=== PATIENT | female | born 1985 | race Caucasian/White ===

== ENCOUNTER 2023-11-02 20:36 | Emergency (ER) | payer OTHER, SELFPAY ==
[2023-11-02 20:41] VITALS: BP 103/56; PULSE 69; TEMP 36.6; O2SAT 99; BMI 22.8
--- NOTE | 2023-11-02 21:05 | ED.UPPEXIN1 ---
HPI HPI - Extremity Injury (Upper) General Chief Complaint: Extremity Injury, Upper Stated Complaint: Upper Injury Time Seen by Provider: 11/02/23 21:02 Source: patient Mode of arrival: walk-in Limitations: no limitations History of Present Illness HPI narrative: describes jamming her thumb while it was in extension. Was at work and a box struck her thumb last night. Now has pain and swelling of the right thumb and pain radiates up her wrist. No numbness or weakness Related Data Home Medications ?Medication ?Instructions ?Recorded ?Confirmed No Known Home Medications 11/02/23 11/02/23 Allergies Allergy/AdvReac Type Severity Reaction Status Date / Time Penicillins AdvReac Mild Verified 11/02/23 20:41 Opioid HPI Opioid Management Most Recent Pain and Opioid Data: No Data to Display Review of Systems ROS Status of ROS 10 or more systems reviewed and unremarkable except as noted in history and below Exam Constitutional Vital Signs, click to edit/add: Last Vital Signs Temp 97.8 F 11/02/23 20:41 Pulse 69 11/02/23 20:41 Resp 18 11/02/23 20:41 BP 103/56 11/02/23 20:41 Pulse Ox 99 11/02/23 20:41 O2 Del Method Room Air 11/02/23 20:41 Common normals: no apparent distress, average body habitus, oriented x3, no limitations, healthy appearing, alert and well nourished [facility] Common normals: normocephalic and head/scalp atraumatic Respiratory Common normals: normal respiratory effort, no retractions, no use of accessory muscles and clear to auscultation bilaterally Cardio Common normals: regular rate, regular rhythm, S1 normal heart sound and S2 normal heart sound Extremity Other: mild swelling right 1st MCP joint. limited ROM. no discoloration Neuro Common normals: oriented x3, moves all extremities and no focal motor deficits Psych Appearance: grossly normal Course Vital Signs Vital signs: Vital Signs Temperature 97.8 F 11/02/23 20:41 Pulse Rate 69 11/02/23 20:41 Respiratory Rate 18 11/02/23 20:41 Blood Pressure 103/56 11/02/23 20:41 Pulse Oximetry 99 11/02/23 20:41 Oxygen Delivery Method Room Air 11/02/23 20:41 Temperature 97.8 F 11/02/23 20:41 Pulse Rate 69 11/02/23 20:41 Respiratory Rate 18 11/02/23 20:41 Blood Pressure 103/56 11/02/23 20:41 Pulse Oximetry 99 11/02/23 20:41 Oxygen Delivery Method Room Air 11/02/23 20:41 MDM - Extremity Injury (Upper) MDM Narrative Medical decision making narrative: patient presents after hyper extension injury to the right thumb. xray neg. does have mild swelling at 1st MCP joint. splint placed and patient returned to work with restrictions Imaging Data Chest x-ray: Radiologist's impression: ITS Impressions Hand X-Ray 11/02/23 21:07 IMPRESSION: No fracture Electronically authenticated by: ANAHI NOLASCO Date: 11/02/2023 21:35 Discharge Plan Discharge Stand Alone Forms: Portal Instructions Chief Complaint: Extremity Injury, Upper Clinical Impression: Finger sprain Patient Disposition: Home, Self-Care Prescriptions / Home Meds: No Action No Known Home Medications Print Language: Macedonian Instructions: Rob Briones (ED) Additional Instructions: follow up with Industrial [facility] sunday Referrals: Physician,Non-Staff, [Primary Care Provider] - 1 week Discharge Date/Time: 11/02/23 22:30
--- NOTE | 2023-11-02 21:07 | XR_ITS ---
The [place] [address] Patient Name: AURELIO MARSHALL MRN: [id number] date: 1985 Sex: F Assigned Patient Location: ER Current Patient Location: ER Accession/Order Number: [id number] Exam Date: 11/02/2023 21:10 Report Date: 11/02/2023 21:35 At the request of: CHANCE CERVANTES Procedure: XR hand RT min 3V EXAM: XR hand RT min 3V TECHNIQUE: AP, lateral and oblique views right hand HISTORY: thumb injury COMPARISON: None. FINDINGS: No acute fracture or dislocation. Soft tissues are unremarkable. No significant arthritic changes. XR/XR hand RT min 3V IMPRESSION: No fracture Electronically authenticated by: ANAHI NOLASCO Date: 11/02/2023 21:35
== END 2023-11-02 22:30 | disposition home or self-care (01) ==
PROVIDERS: Emergency Provider Internal Medicine
DX: S63.601A Unspecified sprain of right thumb, initial encounter (principal); W22.8XXA Striking against or struck by other objects, initial encounter
CPT/HCPCS: 29130; 73130; 99283

== ENCOUNTER 2023-11-13 17:46 | Emergency (ER) | payer OTHER, SELFPAY ==
[2023-11-13 17:53] VITALS: BP 126/68; PULSE 70; TEMP 36.7; O2SAT 99; BMI 23.1
--- NOTE | 2023-11-13 18:02 | PC.NURSE ---
pt arrives with splint to right hand / thumb. splint removed for assessment and no redness, swelling or bruising observed and skin intact
--- NOTE | 2023-11-13 18:10 | ED.UPPEXIN1 ---
HPI HPI - Extremity Injury (Upper) General Chief Complaint: Extremity Injury, Upper Stated Complaint: upper Injury Time Seen by Provider: 11/13/23 18:05 Source: patient Mode of arrival: walk-in History of Present Illness HPI narrative: 38 year old female presents to the ED for pain to her right thumb that radiates to her wrist and across the palm of her hand. Onset was after an injury on 11/02/23. States she was trying to keep a box from landing incorrectly on a belt; the box landed on her thumb. She was evaluated here after the injury. She has been wearing her wrist brace. States she has been unable to work due to the pain. She has not followed up with occupational health. She had Motrin at 0900 this morning. Denies chance of . Related Data Home Medications ?Medication ?Instructions ?Recorded ?Confirmed No Known Home Medications 11/02/23 11/02/23 Allergies Allergy/AdvReac Type Severity Reaction Status Date / Time Penicillins AdvReac Mild Verified 11/02/23 20:41 Opioid HPI Opioid Management Most Recent Pain and Opioid Data: No Data to Display Review of Systems ROS Constitutional Denies: fever or chills Ears, nose, mouth, and throat Denies: neck pain Cardiovascular Denies: chest pain Respiratory Denies: shortness of breath Musculoskeletal Reports: extremity pain Integumentary/Breast Denies: rash or redness Neurological Denies: weakness in extremities Exam Constitutional Vital Signs, click to edit/add: Last Vital Signs Temp 98.0 F 11/13/23 17:53 Pulse 70 11/13/23 17:53 Resp 16 11/13/23 17:53 BP 126/68 11/13/23 17:53 Pulse Ox 99 11/13/23 17:53 O2 Del Method Room Air 11/13/23 17:53 Common normals: no apparent distress and oriented x3 Eye Common normals: conjunctivae normal and no scleral icterus Neck & C-Spine Common normals: supple Respiratory Common normals: normal respiratory effort and no use of accessory muscles Effort & inspection: able to speak in complete sentences Cardio Common normals: regular rate Extremity Other: Tenderness to base of right thumb. Distal sensation intact. Decreased ROM to right thumb due to pain. Tenderness extends to right lateral wrist. No erythema, swelling or deformity noted. Neuro Common normals: oriented x3 Sensorium/orientation: awake and alert Course Vital Signs Vital signs: Vital Signs Temperature 98.0 F 11/13/23 17:53 Pulse Rate 70 11/13/23 17:53 Respiratory Rate 16 11/13/23 17:53 Blood Pressure 126/68 11/13/23 17:53 Pulse Oximetry 99 11/13/23 17:53 Oxygen Delivery Method Room Air 11/13/23 17:53 Temperature 98.0 F 11/13/23 17:53 Pulse Rate 70 11/13/23 17:53 Respiratory Rate 16 11/13/23 17:53 Blood Pressure 126/68 11/13/23 17:53 Pulse Oximetry 99 11/13/23 17:53 Oxygen Delivery Method Room Air 11/13/23 17:53 MDM - Extremity Injury (Upper) MDM Narrative Medical decision making narrative: She requested a work excuse. She was medicated with Toradol here. She has a Velcro thumb spica/wrist splint. She was encouraged to follow up with occupational health for a recheck, further evaluation and treatment. She declined repeat imaging today. Differential Diagnosis Differential diagnosis: Likely sprain and strain of wrist and finger sprain Medical Records Attestation: I reviewed the patient's medical records. Discharge Plan Discharge Stand Alone Forms: Portal Instructions Chief Complaint: Extremity Injury, Upper Clinical Impression: Sprain of right thumb Patient Disposition: Home, Self-Care Time of Disposition Decision: 18:12 Condition: Good Mode of Transportation: Private Vehicle Prescriptions / Home Meds: No Action No Known Home Medications Print Language: Polish Instructions: Sprain (ED), Finger Sprain (ED) Additional Instructions: Follow up with occupational health for a recheck, further evaluation and treatment. Referrals: Physician,Non-Staff, MD [Primary Care Provider] - 1 week Discharge Date/Time: 11/13/23 18:28
[2023-11-13] MEDS: KETOROLAC TROMETHAMINE 60 MG/2 ML VIAL IM (18:17)
== END 2023-11-13 18:28 | disposition home or self-care (01) ==
PROVIDERS: Emergency Provider Emergency Medicine
DX: S63.601A Unspecified sprain of right thumb, initial encounter (principal); W20.8XXA Other cause of strike by thrown, projected or falling object, initial encounter
CPT/HCPCS: 96372; 99284

== ENCOUNTER 2023-11-26 15:31 | Outpatient (OUT) | payer OTHER, SELFPAY ==
--- NOTE | 2023-11-26 15:36 | XR_ITS ---
The [address] [address] Patient Name: AURELIO MARSHALL MRN: [id number] date: 1985 Sex: F Assigned Patient Location: [facility] Current Patient Location: [facility] Accession/Order Number: [id number] Exam Date: 11/26/2023 15:39 Report Date: 11/26/2023 16:20 At the request of: HARI MARIE Procedure: XR finger RT min 2V PROCEDURE: XR finger RT min 2V COMPARISON: None. HISTORY: Thumb sprain Right FINDINGS: BONES:No fracture, acute abnormality, or significant arthropathy. SOFT TISSUES:Negative. No visible soft tissue swelling. EFFUSION:None visible. OTHER: Negative. XR/XR finger RT min 2V IMPRESSION: No acute radiographic abnormality Electronically authenticated by: JAYDEN ESCOBAR Date: 11/26/2023 16:20
== END 2023-11-26 15:32 | disposition home or self-care (01) ==
LOC: RAD 15:32
PROVIDERS: Visit Provider Nurse Practitioner Family
DX: S63.601A Unspecified sprain of right thumb, initial encounter (principal)
CPT/HCPCS: 73140

== ENCOUNTER 2024-04-10 09:19 | Emergency (ER) | payer OTHER, SELFPAY ==
[2024-04-10 09:23] VITALS: BP 136/82; PULSE 77; TEMP 36.9; O2SAT 100; BMI 23.2
--- NOTE | 2024-04-10 09:34 | XR_ITS ---
The [address] [address] Patient Name: AURELIO MARSHALL MRN: [id number] date: 1985 Sex: F Assigned Patient Location: ER Current Patient Location: ER Accession/Order Number: [id number] Exam Date: 04/10/2024 09:55 Report Date: 04/10/2024 10:23 At the request of: KARRIE VILLA Procedure: XR pelvis 1-2V PROCEDURE: XR pelvis 1-2V HISTORY: left groin pain, started while lifting COMPARISON: None. FINDINGS: BONES:No fracture, acute abnormality, or significant arthropathy. SOFT TISSUES:No visible soft tissue swelling. EFFUSION:None visible. OTHER: Negative. XR/XR pelvis 1-2V IMPRESSION: 1. No acute or suspicious findings to account for patient's symptoms. Electronically authenticated by: NIKOLAI SHELLEY Date: 04/10/2024 10:23
--- NOTE | 2024-04-10 09:35 | ED.GENADUL1 ---
HPI HPI - General Adult General Chief complaint: Back Pain/Injury Stated complaint: PAIN IN [facility] Time Seen by Provider: 04/10/24 09:23 History of Present Illness HPI narrative: 38-year-old female presents for left groin pain. It started just after midnight, about 9 hours ago, when she was lifting heavy item at work. She felt a pulling sensation in the area. She did not fall. The pain does not radiate. No pain on the right side. Related Data Home Medications ?Medication ?Instructions ?Recorded ?Confirmed No Known Home Medications 11/02/23 11/02/23 Allergies Allergy/AdvReac Type Severity Reaction Status Date / Time Penicillins AdvReac Mild SHORTNESS Verified 04/10/24 09:23 of breath Opioid HPI Opioid Management Most Recent Opioid Data: No Data to Display Review of Systems ROS Narrative A ten point review of systems is negative except as noted above. PFSH PFSH Social History Little interest or pleasure in doing things: not at all Feeling down, depressed, or hopeless: not at all Exam Narrative Exam Narrative: Nurses note and vital signs reviewed and patient is not hypoxic. General: The patient appears well and in no apparent distress. Patient is resting comfortably on cart. Skin: Warm, dry, no pallor noted. There is no rash noted. Head: Normocephalic, atraumatic Eye: Normal conjunctiva, no drainage Ears, Nose, Mouth, and Throat: oral mucosa is moist. Nares patent. Cardiovascular: Regular Rate and Rhythm Respiratory: Patient is in no distress, no accessory muscle use, lungs are clear to auscultation, no wheezing, rales or rhonchi Back: non-tender GI: Soft and nontender in the abdominal area. She has tenderness in the left groin region. There is no erythema. There is a small palpable lymph node, nonfluctuant and no erythema. Hip has full range of motion. Musculoskeletal: The patient has no evidence of calf tenderness, no pitting edema, symmetrical pulses noted bilaterally. There are no wounds or areas of erythema on the left leg. Neurological: A&O, normal speech Psychiatric: Cooperative Constitutional Vital Signs, click to edit/add: Last Vital Signs Temp 98.5 F 04/10/24 09:23 Pulse 77 04/10/24 09:23 Resp 16 04/10/24 09:23 BP 136/82 04/10/24 09:23 Pulse Ox 100 04/10/24 09:23 O2 Del Method Room Air 04/10/24 09:23 Course Vital Signs Vital signs: Vital Signs Temperature 98.5 F 04/10/24 09:23 Pulse Rate 77 04/10/24 09:23 Respiratory Rate 16 04/10/24 09:23 Blood Pressure 136/82 04/10/24 09:23 Pulse Oximetry 100 04/10/24 09:23 Oxygen Delivery Method Room Air 04/10/24 09:23 Temperature 98.5 F 04/10/24 09:23 Pulse Rate 77 04/10/24 09:23 Respiratory Rate 16 04/10/24 09:23 Blood Pressure 136/82 04/10/24 09:23 Pulse Oximetry 100 04/10/24 09:23 Oxygen Delivery Method Room Air 04/10/24 09:23 Medical Decision Making MDM Narrative Medical decision making narrative: X-ray per radiologist is negative. My clinical impression is that she has a groin strain. She also has a palpable lymph node in this area and the reason for that lymph node is uncertain. She does not have any lesions on her leg. She was recommended ice rest and ibuprofen. Treatment diagnosis and follow-up were discussed with the patient. Differential Diagnosis Differential Diagnosis: Groin strain, pelvic fracture Imaging Data Pelvis x-ray: Radiologist's impression: ITS Impressions Pelvis X-Ray 04/10/24 09:34 IMPRESSION: 1. No acute or suspicious findings to account for patient's symptoms. Electronically authenticated by: NIKOLAI SHELLEY Date: 04/10/2024 10:23 Discharge Plan Discharge Chief Complaint: Back Pain/Injury Clinical Impression: Groin strain Patient Disposition: Home, Self-Care Time of Disposition Decision: 10:30 Condition: Good Mode of Transportation: Private Vehicle Prescriptions / Home Meds: No Action No Known Home Medications Print Language: Polish Instructions: Groin Strain (ED) Referrals: Physician,Non-Staff, MD [Primary Care Provider] - 1 week
--- OUTSIDE RECORDS SUMMARY | 2024-04-10 09:43 | XMS_ITS | CCD ---
Author Organization [facility] Care Team Providers Care Mimeograph Operator Name Role Phone Nancy Joel Unavailable Ursula Talbot Unavailable ANILA, DR ALEXANDER Primary Care Unavailable SANTIAGO ., DR REID Attending Unavailabl e SANTIAGO ., DR REID Admitting Unavailabl e SANTIAGO ., DR REID Consulting Unavaildione BEE, DR CRAIG Lucas Attending Unavailable ROHIT, DR CRAIG Lucas Admitting Unavailable ANILA, DR ALEXANDER Primary Care Unavailable ROHIT, DR CRAIG Lucas Consulting Unavailable ZULEIKA, JAYDEN Consulting Unavailable ANILA, DR ALEXANDER Primary Care Unavailable ANILA, DR ALEXANDER Attending Unavailable ANILA, DR ALEXANDER Admitting Unavailable ISIDORO ., DR KUO Admitting Unavailable HAY ., DR KUO Consulting Unavailable HAY ., DR KUO Attending Unavailable ANILA, DR ALEXANDER Primary Care Unavailable HAMKRISTIN Consulting Unavailable KARRIE VILLA Attending Unavailable ALLEN, KARRIE Aguilera Admitting Unavailable KARRIE VILLA Consulting Unavailable ANILA, DR ALEXANDER Primary Care Unavailable AHDOOTALINA Consulting Unavailable ANILA, DR ALEXANDER Primary Care Unavailable HAY ., DR KUO Attending Unavailable HAY ., DR KUO Admitting Unavailable DAPHNEY, DR NIKOLAI Lucas Consulting Unavailable ISIDORO ., DR KUO Consulting Unavailable ANILA, DR ALEXANDER Primary Care Unavailable ROHIT, DR CRAIG Lucas Attending Unavailable ROHIT, DR CRAIG Lucas Admitting Unavailable ROHIT, DR CRAIG Lucas Consulting Unavailable JAYDEN TO Consulting Unavailable ANILA, DR ALEXANDER Consulting Unavailable ANILA, DR ALEXANDER Attending Unavailable ANILA, DR ALEXANDER Admitting Unavailable ANILA, DR ALEXANDER Primary Care Unavailable DAPHNEY, DR NIKOLAI Lucas Consulting Unavailable ANILA, DR ALEXANDER Primary Care Unavailable KARASIK ., DR REID Attending Unavailabl e SANTIAGO ., DR REID Admitting Unavailabl e SANTIAGO ., DR REID Consulting Unavailabl e Javier, Nancy Unavailable Allergies Allergy Classification Reported Allergen(s) Allergy Type Date of Onset Reaction(s) Facility (5 sources) penicillAMINE Drug Allergy shortness of breath [facility] Other (1 source) Latex Drug allergy (disorder) 2 [facility] Repository (1 source) Penicillins Drug allergy (disorder) 9 [facility] Medications Current Medications Medication Drug Class(es) Dates Sig (Normalized) Sig (Original) [id number] 200 actuat albuterol 0.09 mg/actuat metered dose inhaler (2 sources) beta2-Adrenergic Agonist Start: 05-22-2023 take 2 puff(s) by inhalation every four to six hours as needed Albuterol Sulfate HFA 108 (90 Base) MCG/ACT 2 puffs as needed Inhalation every 4-6 hours for 14 days May, Active Start: 04-11-2023 take 2 puff(s) by in halation four times daily as needed Albuterol Sulfate HFA 108 (90 Base) MCG/ACT 2 puffs Inhalation 4 times a day prn Mar, Not-Taking azithromycin 250 mg oral tablet (1 source) Macrolide Antimicrobial Start: 11-25-2021 Azithromycin 250 MG 2 tablet on the first day, then 1 tablet daily for 4 days Orally Once a day for 5 day(s) November, Active dextromethorphan hydrobromide 1.5 mg/ml / pyrilamine maleate 1.5 mg/ml oral solution (1 source) Uncompetitive O-tbmxdy-C-aspartat e Receptor Antagonist, Sigma-1 Agonist Start: 05-22-2023 take 10 mL by mouth every eight hours [facility] DM 7.5-7.5 MG/5ML 10 mL Orally every 8 hours for 5 days May, Active Completed/Discontinued Medications Medication Drug Class(es) Dates Sig (Normalized) Sig (Original) dextromethorphan hydrobromide 15 mg / guaiFENesin 400 mg / pseudoephedrine hydrochloride 60 mg oral tablet (1 source) alpha-Adrenergic Agonist, Uncompetitive U-modvvd-Q-aspartat e Receptor Antagonist, Sigma-1 Agonist Start: 04-25-2019 take 0.5-1 tablets by mouth every six hours as needed Capmist DM 60-15-400 MG 1/2 to 1 tablet as needed Orally every 6 hours Apr, Not-Taking doxycycline hyclate 100 mg oral tablet (4 sources) Tetracycline-class Drug Start: 04-11-2023 take 1 tablet by mouth every twelve hours Doxycycline Hyclate 100 MG 1 tablet Orally Twice a day for 10 day(s) Mar, Not-Taking Start: 12-02-2021 take 1 capsule by [facility] every twelve hours Doxycycline Hyclate 100 MG 1 capsule Orally bid for 10 day(s) November, Not-Taking fluticasone propionate 0.05 mg/actuat metered dose nasal spray (1 source) Corticosteroid Start: 04-25-2019 take 1 spray(s) nasal route once daily Fluticasone Propionate 50 MCG/ACT 1 spray in each nostril Nasally Once a day for 30 day(s) Apr, Not-Taking Ibuprofen (5 sources) Nonsteroidal Anti-inflammatory Drug Motrin Not-Taking Motrin Active Ketorolac (8 sources) Nonsteroidal Anti-inflammatory Drug, Cyclooxygenase Inhibitor Start: 10-06-2015 Toradol p er 15 mg Sep, 60 mg Start: 09-15-2014 Toradol per 15 mg Sep, 60 mg methylPREDNISolone (4 sources) Corticosteroid Start: 10-04-2017 Depo-Medrol 80 mg Sep, 80 mg 24 hr nicotine 0.875 mg/hr transdermal system (1 source) Cholinergic Nicotinic Agonist apply 1 dose transdermal route once daily Nicotine 21 MG/24HR 1 patch to skin Transdermal Once a day Not-Taking predniSONE 20 mg oral tablet (9 sources) Start: 11-25-2021 take 1 tablet by mouth every twelve hours predniSONE 20 MG 1 tablet Orally bid for 5 day(s) November, Not-Taking sulfamethoxazole 800 mg / trimethoprim 160 mg oral tablet (1 source) Dihydrofolate Reductase Inhibitor Antibacterial, Sulfonamide Antimicrobial Start: 04-25-2019 take 1 tablet by mouth every twelve hours Bactrim DS 800-160 MG 1 tablet Orally Twice a day for 7 days Apr, Not-Taking Problems Active Problems Problem Classification Problem Date Documented Da te Episodic/Chronic Chronic obstructive pulmonary disease and bronchiectasis (5 sources) Acute exacerbation of chronic bronchitis; Translations: [Chronic bronchitis with acute exacerbation] Chronic Crushing injury or internal injury (5 sources) Crushing injury of left index finger, initial encounter; Translations: [Crushing injury of left middle finger, initial encounter] Onset: 09-09-2022 Episodic E Codes: Natural/environment (1 source) Other and unspecified overexertion or strenuous movements or postures, initial encounter; Translations: [OTH AND UNS OVREXRT/STRN MVMT/POS INT] Onset: 07-05-2022 Episodic E Codes: Other specified and classifiable (1 source) Caught, crushed, jammed, or pinched between moving objects, initial encounter; Translations: [CAUGHT CRUSH/PINCH BTWN MOV OBJ INT] Onset: 09-12-2022 Episodic Other connective tissue disease (3 sources) Pain in right lower leg; Translations: [PAIN IN RIGHT LOWER LEG] Onset: 07-03-2022 Episodic Other connective tissue disease (4 sources) Pain in right leg; Translations: [PAIN IN RIGHT LEG] Onset: 07-01-2022 Episodic Other injuries and conditions due to external causes (1 source) Other injury of other muscle(s) and tendon(s) at lower leg level, right leg, initial encounter; Translations: [OTH INJ OTH MSC TEND LW RT LEG INIT] Onset: 07-05-2022 Episodic Other upper respiratory disease (1 source) Allergic rhinitis; Translations: [Allergic rhinitis, unspecified] Chronic Other upper respiratory disease (1 source) Allergic rhinitis, unspecified Chronic Substance-related disorders (6 sources) Tobacco dependence syndrome; Translations: [Tobacco abuse] Onset: 07-05-2022 Chronic Unclassified (2 sources) COUGH, UNSPECIFIED; Translations: [COUGH, UNSPECIFIED] Onset: 11-17-2021 Past or Other Problems Problem Classification Problem Date Documented Date Episodic/Chronic Chronic obstructive pulmonary disease and bronchiectasis (2 sources) Bronchitis, not specified as acute or chronic Onset: 11-25-2021 Resolved: 11-25-2021 Episodic Immunizations and screening for infectious disease (2 sources) Contact with and (suspected) exposure to other viral communicable diseases; Translations: [Encounter for screening for human papillomavirus (HPV)] Onset: 06-06-2021 Resolved: 06-06-2021 Episodic Other female genital disorders (5 sources) Other specified noninflammatory disorders of vagina; Translations: [OTH SPEC NONINFLAMMATORY D/O VAGINA] Onset: 03-23-2022 Episodic Other non-traumatic joint disorders (4 sources) Pain in right knee; Translations: [PAIN IN RIGHT KNEE] Onset: 11-10-2021 Episodic Other screening for suspected conditions (not mental disorders or infectious disease) (4 sources) Encounter for screening for malignant neoplasm of cervix; Translations: [ENC SCREENING MALIG NEOPLASM CERV] Onset: 03-21-2022 Episodic Other upper respiratory infections (1 source) Acute sinusitis, unspecified Onset: 12-02-2021 Resolved: 12-02-2021 Episodic Pleurisy; pneumothorax; pulmonary collapse (1 source) Pleurisy; Translations: [PLEURISY] Onset: 11-17-2021 Episodic Unclassified (2 sources) Cough R05.9 Onset: 11-25-2021 Resolved: 11-25-2021 Unclassified (1 source) COUGH, UNSPECIFIED; Translations: [COUGH, UNSPECIFIED] Onset: 11-16-2021 Viral infection (1 source) COVID-19 Onset: 06-06-2021 Resolved: 06-06-2021 Results Test Name Value Interpretation Reference Range Facility XR HAND LT MIN 3Von 09-09-19 23 XR HAND LT MIN 3V EXAMINATION: XR HAND LT MIN 3V REASON FOR EXAM: Pain COMPARISON: No comparison. TECHNIQUE: Three images. FINDINGS: Osseous alignment in the hand is normal. Specific attention given to the second digit. No fracture. No soft tissue foreign body or gas collection. IMPRESSION: Negative x-rays of the left hand with specific attention to the second digit. Electronically authenticated by: KRISTIN CHEEK Date: 2022-09-09 20:36 Normal [facility] XR TIB_FIB RT 2Von 2 XR TIB_FIB RT 2V EXAM: XR TIB_FIB RT 2V HISTORY: Pain COMPARISON: X-rays of right tibia/fibula dated 06/30/2022. TECHNIQUE: AP and lateral views of the right tibia and fibula FINDINGS: No acute fracture is seen. The visualized soft tissues appear unremarkable. IMPRESSION: No acute fracture of the right tibia and fibula. Electronically authenticated by: ALINA CERVANTES Date: 2022-07-03 18:46 Normal [facility] US SORAIDA DOP LEG RTon 07-02-20 22 US SORAIDA DOP LEG RT EXAM: US SORAIDA DOP LEG RT HISTORY: Right calf pain and edema COMPARISON: None. TECHNIQUE: Real-time, grayscale, color flow and duplex sonographic imaging is performed to the right lower extremity venous system FINDINGS: The visualized right lower extremity venous system exhibits normal flow, phasicity, augmentation, compressibility and waveforms. IMPRESSION: No visualized venous thrombus Electronically authenticated by: JAYDEN TO Date: 2022-07-01 22:43 Normal [facility] D-DIMERon 06-30-2022 D-DIMER 0.34 mg/L FEU Normal <=0.59 [facility] Comment on above: Performed By: #### [id number] #### [facility] [address] [place] [address] Dr. Dayron Cornelius D-DIMER COMMENTS SEE BELOW Normal [facility] Comment on above: Result Comment: Incr eases in D-Dimer concentration observed with thromboembolic events can be variable due to localization, size, and age of the thrombus. Therefore, a thromboembolic event cannot be diagnosed with certainty on the basis of the reference range. D-Dimers may also be elevated for a variety of disorders including: advanced age, , coronary disease, cancer, liver disease, infection, inflammation, hematoma, DIC, trauma, post-surgery, diabetes, thrombolytic or anticoagulant therapy, stress, and generalized hospitalization. Performed By: #### [id number] #### [facility] [address] [place] [address] Dr. Dayron Cornelius SED RATE WESTERGRENon 2021 SED RATE 23 mm/hr Critically high <=20 [facility] Comment on above: Performed By: #### S EDR #### [facility] [address] [place] [address] Dr. Dayron Cornelius URIC ACID SERUMon 06-30-2022 Urate [Mass/Vol] 4.2 mg/dL Normal 2.6-6.0 [facility] Comment on above: Performed By: #### U BARNEY #### [facility] [address] [place] [address] Dr. Dayron Cornelius XR TIB_FIB RT 2Von 2 XR TIB_FIB RT 2V EXAM: XR TIB_FIB RT 2V HISTORY: Right ankle pain COMPARISON: Knee x-rays 11/10/2021 TECHNIQUE: 4 views FINDINGS: No fracture, dislocation, subluxation or osseous lesion. Joint spaces are normal. The visualized soft tissues are normal. No radiodense foreign body. IMPRESSION: Normal x-rays Electronically authenticated by: JAYDEN TO Date: 2022-06-30 20:12 Normal [facility] VAGINITIS/VAGINOSIS DNA PROB Isaiah 06-01-2022 Susan species Positive Abnormal Negative [facility] Comment on above: Performed By: #### V AGINT #### [facility] [address] [place] [address] Dr. Dayron Cornelius Gardnerella vaginalis Negative Normal Negative [facility] Comment on above: Performed By: #### V AGINT #### [facility] [address] [place] [address] Dr. Dayron Cornelius Trichomonas vaginalis Negative Normal Negative [facility] Comment on above: Performed By: #### V AGINT #### [facility] [address] [address] [address] Dayron Cornelius PAP ACOG PANEL 2: 30 to 65on 03-27-2022 . . Normal [facility] Comment on above: Result Comment: Perf ormed at: [facility] Performed By: #### [id number] #### [facility] [address] [place] [address] Dr. Dayron Cornelius Age Gdln ACOG Testing 30-65 Normal [facility] Comment on above: Performed By: #### [id number] #### [facility] [address] [place] [address] Dr. Dayron Cornelius DIAGNOSIS: Comment Normal [facility] Comment on above: Result Comment: NEGA TIVE FOR INTRAEPITHELIAL LESION OR MALIGNANCY. Performed at: [facility] Performed By: #### [id number] #### [facility] [address] [place] [address] Dr. Dayron Cornelius HPV Aptima Negative Normal Negative [facility] Comment on above: Result Comment: This nucleic acid amplification test detects fourteen high-risk HPV types (16,18,31,33,35,39,45,51,52,56,58,59,66,68) without differentiation. Performed at: =G Performed By: #### [id number] #### [facility] [address] [place] [address] Dr. Dayron Cornelius Methodology: Comment Normal [facility] Comment on above: Result Comment: This liquid based ThinPrep(R) pap test was screened with the use of an image guided system. Performed at: [facility] Performed By: #### [id number] #### [facility] [address] [place] [address] Dr. Dayron Cornelius Note: Comment Normal [facility] Comment on above: Result Comment: The Pap smear is a screening test designed to aid in the detection of premalignant and malignant conditions of the uterine cervix. It is not a diagnostic procedure and should not be used as the sole means of detecting cervical cancer. Both false-positive and false-negative reports do occur. . Performed at: WB Performed By: #### [id number] #### [facility] [address] [place] [address] Dr. Dayron Cornelius Performed by: Comment Normal [facility] Comment on above: Result Comment: Tracey Nolan, Air Crew Officer (ASCP) Performed at: [facility] Performed By: #### [id number] #### [facility] [address] [place] [address] Dr. Dayron Cornelius Specimen adequacy: Comment Normal [facility] Comment on above: Result Comment: Sati sfactory for evaluation. Endocervical and/or squamous metaplastic cells (endocervical component) are present. Performed at: [facility] Performed By: #### [id number] #### [facility] [address] [place] [address] Dr. Dayron Cornelius VAGINITIS/VAGINOSIS DNA PROB Isaiah 03-24-2022 Susan species Negative Normal Negative [facility] Comment on above: Performed By: #### [id number] #### [facility] [address] [place] [address] Dr. Dayron Cornelius Gardnerella vaginalis Negative Normal Negative [facility] Comment on above: Performed By: #### [id number] #### [facility] [address] [address] [address] Dayron Cornelius Trichomonas vaginalis Negative Normal Negative [facility] Comment on above: Performed By: #### [id number] #### [facility] [id number] Dayron Cornelius COVID Quick Testingon 2021 Result Negative [facility] Other XR CHEST 2 Von 11-16-2021 XR CHEST 2 V EXAMINATION: XR CHES T 2 V HISTORY: SHORTNESS OF BREATH , cough COMPARISON: No relevant comparison available. FINDINGS: LUNGS: No significant pulmonary parenchymal abnormalities. VASCULATURE: No increased pulmonary vasculature. PLEURA: No pneumothorax, effusion, or pleural thickening. CARDIAC: No cardiomegaly or cardiac silhouette abnormality. MEDIASTINUM: No visible mass or adenopathy. BONES: No fracture or visible bone lesion. OTHER: Negative. IMPRESSION: 1. No acute cardiopulmonary process. Electronically authenticated by: NIKOLAI SHELLEY Date: 2021-11-16 12:00 Normal [facility] [employer] Quick Testingon 2020 Result Positive [facility] Other Vital Signs Date Time Vital Sign Value Performing Clinician Facility 05-22-2023 09:55-0500 Body height 162.56 cm Nancy Herrera Other [facility] Other 05-22-2023 09:55-0500 Body mass index (BMI) [Ratio] 23.41 kg/m2 Nancy Herrera Other [facility] Other 05-22-2023 09:55-0500 Body temperature 98.7 [degF] Nancy Herrera Other [facility] Other 05-22-2023 09:55-0500 Body weight 61.87 kg Nancy Herrera Other [facility] Other 05-22-2023 09:55-0500 Respiratory rate 18 /min Nancy Herrera Other [facility] Other 05-22-2023 09:55-0500 SaO2% (BldA) [Mass fraction] 97 % Nancy Herrera Other [facility] Other 12-02-2021 18:30-0400 Body height 162.56 cm Ursula Dahiana Other [facility] Other 12-02-2021 18:30-0400 Body mass index (BMI) [Ratio] 28.32 kg/m2 Ursula Dahiana Other [facility] Other 12-02-2021 18:30-0400 Body temperature 98.9 [degF] Ursula Holdenmond Other [facility] Other 12-02-2021 18:30-0400 Body weight 74.84 kg Ursula Holdenmond Other [facility] Other 12-02-2021 18:30-0400 Respiratory rate 18 /min Ursula Holdenmond Other [facility] Other 12-02-2021 18:30-0400 SaO2% (BldA) [Mass fraction] 97 % Ursula Dahiana Other [facility] Other 11-25-2021 17:00-0400 Body height 162.56 cm Ursula Dahiana Other [facility] Other 11-25-2021 17:00-0400 Body mass index (BMI) [Ratio] 28.32 kg/m2 Ursula Dahiana Other [facility] Other 11-25-2021 17:00-0400 Body temperature 97.6 [degF] Ursula Talbot Other [facility] Other 11-25-2021 17:00-0400 Body weight 74.84 kg Ursula Talbot Other [facility] Other 11-25-2021 17:00-0400 SaO2% (BldA) [Mass fraction] 97 % Ursula Talbot Other [facility] Other 06-06-2021 16:15-0500 Body height 162.56 cm Nancy Ginty Other [facility] Other 06-06-2021 16:15-0500 Body mass index (BMI) [Ratio] 31.75 kg/m2 Nancy Ginty Other [facility] Other 06-06-2021 16:15-0500 Body temperature 98.2 [degF] Nancy Ginty Other [facility] Other 06-06-2021 16:15-0500 Body weight 83.92 kg Nancy Ginty Other [facility] Other 06-06-2021 16:15-0500 Respiratory rate 18 /min Nancy Ginty Other [facility] Other 06-06-2021 16:15-0500 SaO2% (BldA) [Mass fraction] 97 % Nancy Ginty Other [facility] Other Encounters Encounter Date Encounter Type Care Provider Facility Start: 05-22-2023 End: 05-22-2023 ambulatory Nancy Herrera Other [facility] Start: 05-22-2023 Office outpatient vi sit 25 minutes Nancy Herrera [facility] Start: 09-09-2022 End: 09-09-[address] AYAAN CHAUDHRY . Facility:[facility] Start: 07-03-2022 End: 07-03-2022 ambulatory KARRIE VILLA Facility:[facility] Start: 07-01-2022 End: 07-02-[address] CRAIG BEE Facility:[facility] Start: 06-30-2022 End: 06-30-[address] BENJAMIN HIGH Facility:[facility] Start: 05-30-2022 End: 05-30-[address] BENJAMIN HIGH Facility:[facility] Start: 03-21-2022 End: 03-21-[address] BENJAMIN HIGH Facility:[facility] Start: 12-02-2021 End: 12-02-2021 ambulatory Ursula Talbot Other [facility] Other Start: 12-02-2021 Office outpatient vi sit 15 minutes Ursula Dahiana [facility] Start: 11-25-2021 End: 11-25-2021 ambulatory Ursula Talbot Other [facility] Other Start: 11-25-2021 Office outpatient vi sit 15 minutes Ursula Dahiana [facility] Start: 11-16-2021 End: 11-16-[address] BENJAMIN HIGH Facility:[facility] Start: 11-15-[address] BENJAMIN HIGH Facili ty:[facility] Start: 11-10-2021 End: 11-11-[address] BENJAMIN HIGH Facility:[facility] Start: 06-06-2021 End: 06-06-2021 ambulatory Nancy Ginty Other [facility] Other Start: 06-06-2021 Office outpatient vi sit 15 minutes Nancy Ginty [facility] Payers Date Payer Category Payer Unknown [id number] 2.16.84 [id number] 1983 Unknown [id number] 2.16.84 [id number] 1983 Unknown [id number] 2.16.84 [id number] 1983 Unknown [id number] 2.16.84 [id number] 1983 Unknown [id number] 2.16.84 [id number] 1983 Unknown [id number] 2.16.84 [id number] 1983 Unknown [id number] 2.16.84 [id number] 1983 Unknown [id number] 2.16.84 [id number] 1983 Unknown [id number] 2.16.84 [id number] 1961 [facility] UCR01 [id number] 1961 Unknown [id number] Social History Date Type Detail Facility Unknown if ever smoked [facility] Other Sex Assigned At Sex Assigned At Bir th [facility] Other Evaluation note 05-22-2023 Note Date & Type Note Facility 05-22-2023 Evaluation note Encounter Date Diagnosis Assessment Notes May, Allergic rhinitis, unspecified seasonality, unspecified trigger (ICD-10 - J30.9) Discussed diagnosis with patient today in office. No testing performed today. Advised patient that there is no signs of acute lung process or bacterial infection present today on exam. Advised patient that symptoms are likely related to environmental factors. We will send in Rx of prednisone and [facility] to help for symptom management. May use albuterol inhaler as needed. Encouraged follow-up with PCP for further management. Work note provided, no extension allowed. Patient verbalizes understanding and is agreeable with treatment plan [facility] Other Evaluation note 12-02-2021 Note Date & Type Note Facility 12-02-2021 Evaluation note Encounter Date Diagnosis Assessment Notes November, Acute sinusitis, recurrence not specified, unspecified location (ICD-10 - J01.90) Drink plenty of fluids, get plenty of rest. Take the doxycycline and prednisone as prescribed until gone. Try to stop smoking. Follow-up with your family physician if no improvement in 2 to 3 days. [facility] Other Evaluation note 11-25-2021 Note Date & Type Note Facility 11-25-2021 Evaluation note Encounter Date Diagnosis Assessment Notes November, Cough (ICD-10 - R05.9) November, Bronchitis (ICD-10 - J40) Drink plenty fluids, get plenty of rest. Take the prednisone and azithromycin as prescribed until gone. Continue to use your albuterol inhaler as needed. Try to stop smoking. Follow-up with your family physician if no improvement in 2 to 3 days. Take Tylenol or Motrin for aches pains or fevers. [facility] Other Clinical Note 11-10-2021 Note Date & Type Note Facility 11-10-2021 Note PROCEDURE: XR KNEE R T 4V or > HISTORY: Pain in right knee for one month COMPARISON: None. FINDINGS: BONES:No fracture, acute abnormality, or significant arthropathy. SOFT TISSUES:No visible soft tissue swelling. EFFUSION:None visible. OTHER: Negative. IMPRESSION: 1. Normal examination. Electronically authenticated by: NIKOLAI SHELLEY Date: 2021-11-10 10:57 [facility] Evaluation note 06-06-2021 Note Date & Type Note Facility 06-06-2021 Evaluation note Encounter Date Diagnosis Assessment Notes May, Contact with and (suspected) exposure to other viral communicable diseases (ICD-10 - Z20.828) May, COVID-19 (ICD-10 - U07.1) Rapid COVID test performed in office today. Advised patient that test was positive. Instructed patient to isolate per CDC guidelines for 10 days from symptom onset. May return to work/activities outside home after isolation period as long as symptoms are improving and has been afebrile for 24 hours without use of antipyretic. Advised patient that health dept. will be in contact as results are reported to them. Advised patient that treatment of COVID is with viral supportive care OTC cold medications as directed, Tylenol/Motrin as needed for body aches/fever. Increase fluids and rest. Encouraged use of cool mist humidifier. Follow-up with PCP to advise of positive result and further management need. Immediate eval for SOB, difficulty, chest pain, fevers that do not break with antipyretic or any other concerning symptoms as reviewed on patient education handout. Patient verbalizes understanding and is agreeable to treatment plan. Patient left in stable condition May, Other Additional time spent conducting pre-visit phone call, screening for symptoms, instructions on social distancing, application and removal of PPE, and cleaning of examination room, equipment and supplies was preformed. Patient education given for testing methodology and results. Patient care instructions given in writting by [facility] Other History general Narrative - Reported Note Date & Type Note Facility History general Narrative - Reported Type Medical History Migraine Medical History Kidney stone Medical History endometriosis Surgical History D&C 2011 Surgical History Had to end a due to t ri 18 2026 Surgical History D&C and laproscopy 04/03 Surgical History Shoulder surgery 2020 Hospitalization History See past surgical hx [facility] Other History general Narrative - Reported Note Date & Type Note Facility History general Narrative - Reported Type Medical History Migraine Medical History Kidney stone Medical History endometriosis Surgical History D&C 2011 Surgical History Had to end a due to t ri 18 2026 Surgical History D&C and laproscopy 04/03 Surgical History Shoulder surgery 2020 Surgical History hysterectomy Hospitalization History See past surgical hx [facility] Other Summary Purpose Family History No Family History Records Found Advance Directives No Advanced Directives Records Found Additional Source Comments REASON FOR VISIT (unrecogniz ed section and content) #26 WHITE JEEP, EXPOSED, SIN US CONGESTIONWHITE JEEP, COUGH, CONGESTION, NOT ANY BETTER AFTER TREATMENT 7 DAYS AGO, CANT GET IN WITH PCPWHITE JEEP, COUGH, SINUS CONGESTION, SORE THROAT, FATIGUE, H/AWHITE JEEP, COUGH, SINUS CONGESTION, SORE THROAT, FATIGUE, H/Acough, never went away, sinus infection INFORMATION SOURCE (unrecogn ized section and content) DATE CREATED AUTHOR 09/13/2022 [facility] FOR RECORDS PERTAINING TO PATIENTS WHO ARE OR HAVE BEEN ENROLLED IN A CHEMICAL DEPENDENCY/SUBSTANCEABUSE PROGRAM, SOME INFORMATION MAY BE OMITTED. This clinical summary was aggregated from multiple sources. Caution should be exercised in using it in the provision of clinical care. This summary normalizes information from multiple sources, and as a consequence, information in this document may materially change the coding, format and clinical context of patient data. In addition, data may be omitted in some cases. CLINICAL DECISIONS SHOULD BE BASED ON THE PRIMARY CLINICAL RECORDS. [facility] [employer] [facility]. provides no warranty or guarantee of the accuracy or completeness of information in this document.
[2024-04-10 11:06] VITALS: BP 130/88; PULSE 78; O2SAT 98
== END 2024-04-10 11:06 | disposition home or self-care (01) ==
PROVIDERS: Emergency Provider Emergency Medicine
DX: S39.011A Strain of muscle, fascia and tendon of abdomen, initial encounter (principal); X50.0XXA Overexertion from strenuous movement or load, initial encounter
CPT/HCPCS: 72170; 99283